=== PATIENT | female | born 1950 | race African-American/Black ===

== ENCOUNTER 2024-09-04 17:41 | Observation (INO) ==
--- NOTE | 2024-09-04 18:06 | EKG ---
Test Reason : chest pain Blood Pressure : */* mmHG Vent. Rate : 80 BPM Atrial Rate : 80 BPM P-R Int : 120 ms QRS Dur : 82 ms QT Int : 378 ms P-R-T Axes : 51 34 77 degrees QTc Int : 435 ms Normal sinus rhythm Nonspecific ST and T wave abnormality Abnormal ECG When compared with ECG of 29-APR-2024 16:25, Nonspecific T wave abnormality has replaced inverted T waves in Inferior leads Confirmed by Mele Mann MD ([id number]) on 09/06/2024 9:44:04 AM Referred By: Confirmed By: Mele Mann MD
[2024-09-04 18:08] VITALS: BMI 23.6
[2024-09-04 18:41] LABS: BASOPHILS # (AUTO) 0.1 X10^3/uL (0.0-0.1); BASOPHILS % (AUTO) 0.8 % (0.2-1.0); EOSINOPHILS % (AUTO) 0.4 % (0.9-2.9); HEMATOCRIT 37.5 % (36.0-47.0); HEMOGLOBIN 12.7 g/dL (12.0-16.0); LYMPHOCYTES % (AUTO) 21.7 % (21.0-51.0); MEAN CORPUSCULAR HEMOGLOBIN 29.2 pg (27.0-34.0); MEAN CORPUSCULAR HGB CONC 33.9 g/dL (33.0-35.0); MEAN CORPUSCULAR VOLUME 86.1 fL (80.0-100.0); MEAN PLATELET VOLUME 9.3 fL (7.4-11.0); MONOCYTES # (AUTO) 0.6 x10^3/uL (0.3-0.8); MONOCYTES % (AUTO) 6.6 % (0.0-13.0); NEUTROPHILS # (AUTO) 6.6 x10^3/uL (2.2-4.8); NEUTROPHILS % (AUTO) 70.5 % (42.0-75.0); PLATELET COUNT 289 X10^3/uL (150.0-450.0); RED BLOOD COUNT 4.36 X10^6/uL (3.5-5.4); RED CELL DISTRIBUTION WIDTH 14.1 % (11.6-16.5); WHITE BLOOD COUNT 9.4 X10^3/uL (3.6-10.0)
[2024-09-04 18:47] LABS: INR 1.21 (0.8-1.3)
[2024-09-04 18:54] LABS: ALANINE AMINOTRANSFERASE 11 Units/L (12-78); ALBUMIN 3.8 g/dL (3.4-5.0); ALKALINE PHOSPHATASE 82 Units/L (46-116); ASPARTATE AMINO TRANSFERASE 12 Units/L (15-37); BLOOD UREA NITROGEN 31 mg/dL (7-18); CALCIUM 9.2 mg/dL (8.5-10.1); CARBON DIOXIDE 21.7 mmol/L (21-32); CHLORIDE 103 mmol/L (98-107); CREATINE KINASE 61 Units/L (26-192); CREATININE 3.27 mg/dL (0.55-1.02); GLUCOSE 103 mg/dL (65-99); POTASSIUM 3.9 mmol/L (3.5-5.1); SODIUM 137 mmol/L (136-145); TOTAL PROTEIN 7.4 g/dL (6.4-8.2); eGFR NON BLACK RACES 15 (>60)
--- NOTE | 2024-09-04 19:43 | DR.CP ---
HPI <Chanceyogesh Neri - Last Filed: 09/04/24 19:45> Time Seen Time Seen by Provider: 09/04/24 19:42 PCP Primary Care Physician: NIECY Complaint Chief Complaint:: Patient c/o of left sided chest pain radiating to the left side of her back/shoulder/leg/arm with sob x2 days. patient states she took x2 nitro yesterday with no relief and x1 nitro today with no relief. COVID-19 Coronavirus risk:travel/contact w/high risk person: No Has patient experienced Coronavirus symptoms: No Source History Provided: Patient Mode of Arrival Mode of Arrival: Wheelchair Timing Onset of Chief Complaint: 09/02/24 Location Chest Pain Radiation Location: Left Jaw, Left Arm and Left Shoulder Associated Signs and Symptoms Associated Signs and Symptoms: Shortness of Breath PMH <Chanceyogesh Neri - Last Filed: 09/04/24 19:45> PMH Past Medical History: Yes Past Medical History: Coronary Artery Disease, Dyslipidemia, Hypertension and [place] Past Surgical History: Yes Surgical History: Angioplasty/Stents, CABG/Valve Surgery, Hysterectomy and T onsillectomy Past Surgical History Comment: stents in right neck Family History History of Family Medical Conditions: Yes Family Medical History: Diabetes Mellitus, Cancer, Heart Failure and Hypertension Social History Does patient currently use any type of tobacco product: No Have you used tobacco products in the last 12 months: No Type of Tobacco Use: None Does any household member use tobacco: No Alcohol Use: None Do you use any recreational Drugs:: No Lives With: Alone Lives Where: Home Travel Risk Coronavirus risk:travel/contact w/high risk person: No Has patient experienced Coronavirus symptoms: No Infectious screening In the last 2 months have you had wt loss of >10#?: NO Have you had fever, night sweats or hemotysis?: No Have you traveled outside the country in the last 6 months?: No Isolation: Standard PE <Romario Neri - Last Filed: 09/04/24 19:45> Vitals Vitals: Vital Signs Temperature 98.0 F Pulse Rate 83 Pulse Rate 81 Respiratory Rate 18 Respiratory Rate 19 Blood Pressure 116/61 Blood Pressure 116/61 O2 Sat by Pulse Oximetry 100 O2 Sat by Pulse Oximetry 100 <Rory Gutierrez - Last Filed: 09/04/24 21:37> Vitals Vitals: Vital Signs Temperature 98.0 F Pulse Rate 83 Pulse Rate 81 Respiratory Rate 18 Respiratory Rate 19 Blood Pressure 116/61 Blood Pressure 116/61 O2 Sat by Pulse Oximetry 100 O2 Sat by Pulse Oximetry 100 ROR <Romario Neri - Last Filed: 09/04/24 19:45> Labs Reviewed 09/04/24 18:32 09/04/24 18:32 Laboratory: WBC 9.4 X10^3/uL (3.6-10.0) 09/04/24 18:32 RBC 4.36 X10^6/uL (3.5-5.4) 09/04/24 18:32 Hgb 12.7 g/dL (12.0-16.0) 09/04/24 18:32 Hct 37.5 % (36.0-47.0) 09/04/24 18:32 MCV 86.1 fL (80.0-100.0) 09/04/24 18:32 MCH 29.2 pg (27.0-34.0) 09/04/24 18:32 MCHC 33.9 g/dL (33.0-35.0) 09/04/24 18:32 RDW 14.1 % (11.6-16.5) 09/04/24 18:32 Plt Count 289 X10^3/uL (150.0-450.0) 09/04/24 18:32 MPV 9.3 fL (7.4-11.0) 09/04/24 18:32 Neut % (Auto) 70.5 % (42.0-75.0) 09/04/24 18:32 Lymph % (Auto) 21.7 % (21.0-51.0) 09/04/24 18:32 [place] % (Auto) 6.6 % (0.0-13.0) 09/04/24 18:32 Eos % (Auto) 0.4 % (0.9-2.9) L 09/04/24 18:32 Baso % (Auto) 0.8 % (0.2-1.0) 09/04/24 18:32 Neut # (Auto) 6.6 x10^3/uL (2.2-4.8) H 09/04/24 18:32 Lymph # (Auto) 2.0 X10^3/uL (1.3-2.9) 09/04/24 18:32 [place] # (Auto) 0.6 x10^3/uL (0.3-0.8) 09/04/24 18:32 Eos # (Auto) 0.0 x10^3/uL (0.0-0.2) 09/04/24 18:32 Baso # (Auto) 0.1 X10^3/uL (0.0-0.1) 09/04/24 18:32 Absolute Nucleated RBC 0.1 /100WBC 09/04/24 18:32 PT 15.1 SECONDS (11.8-14.3) 09/04/24 18:32 INR Target Range - 09/04/24 18:32 INR 1.21 (0.8-1.3) 09/04/24 18:32 APTT 26.8 SECONDS (22.9-36.5) 09/04/24 18:32 PTT Comment - 09/04/24 18:32 Sodium 137 mmol/L (136-145) 09/04/24 18:32 Corrected Sodium TNP 09/04/24 18:32 Potassium 3.9 mmol/L (3.5-5.1) 09/04/24 18:32 Chloride 103 mmol/L (98-107) 09/04/24 18:32 Carbon Dioxide 21.7 mmol/L (21-32) 09/04/24 18:32 BUN 31 mg/dL (7-18) H 09/04/24 18:32 Creatinine 3.27 mg/dL (0.55-1.02) H 09/04/24 18:32 Est GFR (MDRD) Af Amer 18 (>60) L 09/04/24 18:32 Est GFR (MDRD) Non-Af 15 (>60) L 09/04/24 18:32 Glucose 103 mg/dL (65-99) H 09/04/24 18:32 Calcium 9.2 mg/dL (8.5-10.1) 09/04/24 18:32 Corrected Calcium TNP 09/04/24 18:32 Total Bilirubin 0.30 mg/dL (0.2-1.0) 09/04/24 18:32 AST 12 Units/L (15-37) L 09/04/24 18:32 ALT 11 Units/L (12-78) L 09/04/24 18:32 Alkaline Phosphatase 82 Units/L (46-116) 09/04/24 18:32 Creatine Kinase 61 Units/L (26-192) 09/04/24 18:32 Troponin I High Sens 25.1 ng/L (4.0-60.0) 09/04/24 20:20 Total Protein 7.4 g/dL (6.4-8.2) 09/04/24 18:32 Albumin 3.8 g/dL (3.4-5.0) 09/04/24 18:32 Globulin 3.6 g/dL (2.5-4.5) 09/04/24 18:32 Albumin/Globulin Ratio 1.1 Ratio (1.1-2.1) 09/04/24 18:32 SARS-CoV-2 (PCR) Negative (NEGATIVE) 09/04/24 18:00 Influenza Type A (PCR) Negative (NEGATIVE) 09/04/24 18:00 Influenza Type B (PCR) Negative (NEGATIVE) 09/04/24 18:00 RSV (PCR) Negative (NEGATIVE) 09/04/24 18:00 <Rory Gutierrez - Last Filed: 09/04/24 21:37> Labs Reviewed Laboratory: WBC 9.4 X10^3/uL (3.6-10.0) 09/04/24 18:32 RBC 4.36 X10^6/uL (3.5-5.4) 09/04/24 18:32 Hgb 12.7 g/dL (12.0-16.0) 09/04/24 18:32 Hct 37.5 % (36.0-47.0) 09/04/24 18:32 MCV 86.1 fL (80.0-100.0) 09/04/24 18:32 MCH 29.2 pg (27.0-34.0) 09/04/24 18:32 MCHC 33.9 g/dL (33.0-35.0) 09/04/24 18:32 RDW 14.1 % (11.6-16.5) 09/04/24 18:32 Plt Count 289 X10^3/uL (150.0-450.0) 09/04/24 18:32 MPV 9.3 fL (7.4-11.0) 09/04/24 18:32 Neut % (Auto) 70.5 % (42.0-75.0) 09/04/24 18:32 Lymph % (Auto) 21.7 % (21.0-51.0) 09/04/24 18:32 [place] % (Auto) 6.6 % (0.0-13.0) 09/04/24 18:32 Eos % (Auto) 0.4 % (0.9-2.9) L 09/04/24 18:32 Baso % (Auto) 0.8 % (0.2-1.0) 09/04/24 18:32 Neut # (Auto) 6.6 x10^3/uL (2.2-4.8) H 09/04/24 18:32 Lymph # (Auto) 2.0 X10^3/uL (1.3-2.9) 09/04/24 18:32 [place] # (Auto) 0.6 x10^3/uL (0.3-0.8) 09/04/24 18:32 Eos # (Auto) 0.0 x10^3/uL (0.0-0.2) 09/04/24 18:32 Baso # (Auto) 0.1 X10^3/uL (0.0-0.1) 09/04/24 18:32 Absolute Nucleated RBC 0.1 /100WBC 09/04/24 18:32 PT 15.1 SECONDS (11.8-14.3) 09/04/24 18:32 INR Target Range - 09/04/24 18:32 INR 1.21 (0.8-1.3) 09/04/24 18:32 APTT 26.8 SECONDS (22.9-36.5) 09/04/24 18:32 PTT Comment - 09/04/24 18:32 Sodium 137 mmol/L (136-145) 09/04/24 18:32 Corrected Sodium TNP 09/04/24 18:32 Potassium 3.9 mmol/L (3.5-5.1) 09/04/24 18:32 Chloride 103 mmol/L (98-107) 09/04/24 18:32 Carbon Dioxide 21.7 mmol/L (21-32) 09/04/24 18:32 BUN 31 mg/dL (7-18) H 09/04/24 18:32 Creatinine 3.27 mg/dL (0.55-1.02) H 09/04/24 18:32 Est GFR (MDRD) Af Amer 18 (>60) L 09/04/24 18:32 Est GFR (MDRD) Non-Af 15 (>60) L 09/04/24 18:32 Glucose 103 mg/dL (65-99) H 09/04/24 18:32 Calcium 9.2 mg/dL (8.5-10.1) 09/04/24 18:32 Corrected Calcium TNP 09/04/24 18:32 Total Bilirubin 0.30 mg/dL (0.2-1.0) 09/04/24 18:32 AST 12 Units/L (15-37) L 09/04/24 18:32 ALT 11 Units/L (12-78) L 09/04/24 18:32 Alkaline Phosphatase 82 Units/L (46-116) 09/04/24 18:32 Creatine Kinase 61 Units/L (26-192) 09/04/24 18:32 Troponin I High Sens 25.1 ng/L (4.0-60.0) 09/04/24 20:20 Total Protein 7.4 g/dL (6.4-8.2) 09/04/24 18:32 Albumin 3.8 g/dL (3.4-5.0) 09/04/24 18:32 Globulin 3.6 g/dL (2.5-4.5) 09/04/24 18:32 Albumin/Globulin Ratio 1.1 Ratio (1.1-2.1) 09/04/24 18:32 SARS-CoV-2 (PCR) Negative (NEGATIVE) 09/04/24 18:00 Influenza Type A (PCR) Negative (NEGATIVE) 09/04/24 18:00 Influenza Type B (PCR) Negative (NEGATIVE) 09/04/24 18:00 RSV (PCR) Negative (NEGATIVE) 09/04/24 18:00 Opioid <Romario Neri - Last Filed: 09/04/24 19:45> Opioid Risk Tool Age (Carlos box if 16-45): No History of Preadolescent Sexual Abuse: No Total: 0 Total Score Risk Category: Low Risk Copyright: [employer] MANNING predicting aberrant behaviors <Rory Gutierrez - Last Filed: 09/04/24 21:37> Opioid Risk Tool Total: 0 Total Score Risk Category: Low Risk Discharge Plan Diagnosis Discharge Problem: Chest pain, Acute renal insufficiency Discharge Plan Patient Disposition: 09 ADMITTED INPATIENT Condition: Stable Prescriptions: No Action nitroglycerin 0.4 mg tablet, sublingual sublingual escitalopram oxalate 10 mg tablet 10 mg PO QDAY Linzess 290 mcg capsule 290 mcg PO QAM Ozempic 1 mg/dose (4 mg/3 mL) pen injector 1 mg SUBCUT QWEEK clopidogrel 75 mg tablet 75 mg PO QDAY amlodipine 5 mg tablet 5 mg PO QDAY tramadol 50 mg tablet 100 mg PO TID pravastatin 80 mg tablet 80 mg PO QDAY estradiol 1 mg tablet 1 mg PO QDAY diclofenac sodium 75 mg tablet,delayed release (DR/EC) 75 mg PO BID testosterone 1 % (25 mg/2.5gram) gel in packet 0.5 packet transdermal QAM metoprolol tartrate 25 mg tablet 25 mg PO BID losartan 50 mg Tablet 50 mg PO QDAY albuterol sulfate 90 mcg/actuation HFA aerosol inhaler 1 puff INHALATION Q4H PRN Health Concerns: Post Hospitalization: new medications and changes needed to prevent readmission or further decline. Pt educated and given instructions on all concerns. Plan of Treatment: Continue with present treatment and follow up plan. Pt is to keep follow up appointment as instructed and take medications as ordered. Orders to Discharge Patient Discharge Orders: Transfer (Routine); Ordered 09/04/24 Ordered By: Rory Gutierrez Follow ups/Referrals Follow ups/Referrals: Marco Kenney [Primary Care Provider] - 3 days
--- NOTE | 2024-09-04 20:30 | EKG ---
Test Reason : CHEST PAIN Blood Pressure : */* mmHG Vent. Rate : 78 BPM Atrial Rate : 78 BPM P-R Int : 122 ms QRS Dur : 78 ms QT Int : 376 ms P-R-T Axes : 31 9 46 degrees QTc Int : 428 ms Normal sinus rhythm Possible Left atrial enlargement Left ventricular hypertrophy ( R in aVL , Nilo product ) Nonspecific ST and T wave abnormality Abnormal ECG When compared with ECG of 04-SEP-2024 18:02, (Unconfirmed) No significant change was found Confirmed by Mele Mann MD ([id number]) on 09/07/2024 9:31:24 AM Referred By: Confirmed By: Mele Mann MD
--- NOTE | 2024-09-04 21:27 | DR.GENAD ---
HPI Time Seen Time Seen by Provider: 09/04/24 19:42 PCP Primary Care Physician: NIECY Complaint/Symptoms Chief Complaint:: Patient c/o of left sided chest pain radiating to the left side of her back/shoulder/leg/arm with sob x2 days. patient states she took x2 nitro yesterday with no relief and x1 nitro today with no relief. COVID-19 Coronavirus risk:travel/contact w/high risk person: No Has patient experienced Coronavirus symptoms: No Nurses notes reviewed Nurses Notes Review: Yes Source History Provided: Patient Mode of Arrival Mode of Arrival: Wheelchair Timing Onset of Chief Complaint: 09/02/24 PMH PMH Past Medical History: Yes Past Medical History: Coronary Artery Disease, Dyslipidemia, Hypertension and [place] Past Surgical History: Yes Surgical History: Angioplasty/Stents, CABG/Valve Surgery, Hysterectomy and Tonsillectomy Past Surgical History Comment: stents in right neck Family History History of Family Medical Conditions: Yes Family Medical History: Diabetes Mellitus, Cancer, Heart Failure and Hypertension Social History Does patient currently use any type of tobacco product: No Have you used tobacco products in the last 12 months: No Type of Tobacco Use: None Does any household member use tobacco: No Alcohol Use: None Do you use any recreational Drugs:: No Lives With: Alone Lives Where: Home Travel Risk Coronavirus risk:travel/contact w/high risk person: No Has patient experienced Coronavirus symptoms: No Infectious screening In the last 2 months have you had wt loss of >10#?: NO Have you had fever, night sweats or hemotysis?: No Have you traveled outside the country in the last 6 months?: No Isolation: Standard ROS Review of Systems Constitutional: No Symptoms Reported Eyes: No Symptoms Reported ENTM: No Symptoms Reported Respiratoy: No Symptoms Reported Cardiovascular: Other (cp for a few days, h/o cabg) Gastrointestinal/Abdominal: No Symptoms Reported Genitourinary: No Symptoms Reported Neurological: No Symptoms Reported Musculoskeletal: No Symptoms Reported Integumentary: No Symptoms Reported Hematologic/Lymphatic: No Symptoms Reported Endocrine: No Symptoms Reported Psychiatric: No Symptoms Reported All Other Systems: Reviewed and Negative PE Vital Signs Vitals: Vital Signs Temperature 98.0 F Pulse Rate 83 Pulse Rate 81 Respiratory Rate 18 Respiratory Rate 19 Blood Pressure 116/61 Blood Pressure 116/61 O2 Sat by Pulse Oximetry 100 O2 Sat by Pulse Oximetry 100 General General Appearance: Alert ENT Mouth Exam: Normal Inspection Neck Neck Exam: Normal Inspection Respiratory Respiratory Exam: Normal Lung Sounds Bilat Cardiovascular Cardiovascular Exam: Other (normal) Abdominal Exam Abdominal Exam: Normal Inspection and Normal Bowel Sounds; negative Tenderness Extremities Extremities Exam: Normal Inspection Neurologic Neurological Exam: Alert, Oriented X3 and Other (normal) Skin Skin Exam: Other MDM Differential Diagnosis Differential Diagnosis: mi, renal failure COURSE Reevaluation 1st: Improved Consultation Called: 21:24 Call Returned: 21:24 Consultation Comments: accepts, told about cp,. nl troponin x 2, now decreased renal function ROR Labs Reviewed 09/04/24 18:32 09/04/24 18:32 Laboratory: WBC 9.4 X10^3/uL (3.6-10.0) 09/04/24 18:32 RBC 4.36 X10^6/uL (3.5-5.4) 09/04/24 18:32 Hgb 12.7 g/dL (12.0-16.0) 09/04/24 18:32 Hct 37.5 % (36.0-47.0) 09/04/24 18:32 MCV 86.1 fL (80.0-100.0) 09/04/24 18:32 MCH 29.2 pg (27.0-34.0) 09/04/24 18:32 MCHC 33.9 g/dL (33.0-35.0) 09/04/24 18:32 RDW 14.1 % (11.6-16.5) 09/04/24 18:32 Plt Count 289 X10^3/uL (150.0-450.0) 09/04/24 18:32 MPV 9.3 fL (7.4-11.0) 09/04/24 18:32 Neut % (Auto) 70.5 % (42.0-75.0) 09/04/24 18:32 Lymph % (Auto) 21.7 % (21.0-51.0) 09/04/24 18:32 [place] % (Auto) 6.6 % (0.0-13.0) 09/04/24 18:32 Eos % (Auto) 0.4 % (0.9-2.9) L 09/04/24 18:32 Baso % (Auto) 0.8 % (0.2-1.0) 09/04/24 18:32 Neut # (Auto) 6.6 x10^3/uL (2.2-4.8) H 09/04/24 18:32 Lymph # (Auto) 2.0 X10^3/uL (1.3-2.9) 09/04/24 18:32 [place] # (Auto) 0.6 x10^3/uL (0.3-0.8) 09/04/24 18:32 Eos # (Auto) 0.0 x10^3/uL (0.0-0.2) 09/04/24 18:32 Baso # (Auto) 0.1 X10^3/uL (0.0-0.1) 09/04/24 18:32 Absolute Nucleated RBC 0.1 /100WBC 09/04/24 18:32 PT 15.1 SECONDS (11.8-14.3) 09/04/24 18:32 INR Target Range - 09/04/24 18:32 INR 1.21 (0.8-1.3) 09/04/24 18:32 APTT 26.8 SECONDS (22.9-36.5) 09/04/24 18:32 PTT Comment - 09/04/24 18:32 Sodium 137 mmol/L (136-145) 09/04/24 18:32 Corrected Sodium TNP 09/04/24 18:32 Potassium 3.9 mmol/L (3.5-5.1) 09/04/24 18:32 Chloride 103 mmol/L (98-107) 09/04/24 18:32 Carbon Dioxide 21.7 mmol/L (21-32) 09/04/24 18:32 BUN 31 mg/dL (7-18) H 09/04/24 18:32 Creatinine 3.27 mg/dL (0.55-1.02) H 09/04/24 18:32 Est GFR (MDRD) Af Amer 18 (>60) L 09/04/24 18:32 Est GFR (MDRD) Non-Af 15 (>60) L 09/04/24 18:32 Glucose 103 mg/dL (65-99) H 09/04/24 18:32 Calcium 9.2 mg/dL (8.5-10.1) 09/04/24 18:32 Corrected Calcium TNP 09/04/24 18:32 Total Bilirubin 0.30 mg/dL (0.2-1.0) 09/04/24 18:32 AST 12 Units/L (15-37) L 09/04/24 18:32 ALT 11 Units/L (12-78) L 09/04/24 18:32 Alkaline Phosphatase 82 Units/L (46-116) 09/04/24 18:32 Creatine Kinase 61 Units/L (26-192) 09/04/24 18:32 Troponin I High Sens 25.1 ng/L (4.0-60.0) 09/04/24 20:20 Total Protein 7.4 g/dL (6.4-8.2) 09/04/24 18:32 Albumin 3.8 g/dL (3.4-5.0) 09/04/24 18:32 Globulin 3.6 g/dL (2.5-4.5) 09/04/24 18:32 Albumin/Globulin Ratio 1.1 Ratio (1.1-2.1) 09/04/24 18:32 SARS-CoV-2 (PCR) Negative (NEGATIVE) 09/04/24 18:00 Influenza Type A (PCR) Negative (NEGATIVE) 09/04/24 18:00 Influenza Type B (PCR) Negative (NEGATIVE) 09/04/24 18:00 RSV (PCR) Negative (NEGATIVE) 09/04/24 18:00 EKG Compared to prior EKG Dated: 09/04/24 ST: Ischemia and Nonsp Opioid Opioid Risk Tool Age (Carlos box if 16-45): No History of Preadolescent Sexual Abuse: No Total: 0 Total Score Risk Category: Low Risk Copyright: [employer] MANNING predicting aberrant behaviors Discharge Plan Diagnosis Discharge Problem: Chest pain, Acute renal insufficiency Discharge Plan Patient Disposition: 09 ADMITTED INPATIENT Condition: Stable Prescriptions: No Action nitroglycerin 0.4 mg tablet, sublingual sublingual escitalopram oxalate 10 mg tablet 10 mg PO QDAY Linzess 290 mcg capsule 290 mcg PO QAM Ozempic 1 mg/dose (4 mg/3 mL) pen injector 1 mg SUBCUT QWEEK clopidogrel 75 mg tablet 75 mg PO QDAY amlodipine 5 mg tablet 5 mg PO QDAY tramadol 50 mg tablet 100 mg PO TID pravastatin 80 mg tablet 80 mg PO QDAY estradiol 1 mg tablet 1 mg PO QDAY diclofenac sodium 75 mg tablet,delayed release (DR/EC) 75 mg PO BID testosterone 1 % (25 mg/2.5gram) gel in packet 0.5 packet transdermal QAM metoprolol tartrate 25 mg tablet 25 mg PO BID losartan 50 mg Tablet 50 mg PO QDAY albuterol sulfate 90 mcg/actuation HFA aerosol inhaler 1 puff INHALATION Q4H PRN Health Concerns: Post Hospitalization: new medications and changes needed to prevent readmission or further decline. Pt educated and given instructions on all concerns. Plan of Treatment: Continue with present treatment and follow up plan. Pt is to keep follow up appointment as instructed and take medications as ordered. Follow ups/Referrals Follow ups/Referrals: Marco Kenney [Primary Care Provider] - 3 days
--- NOTE | 2024-09-04 23:21 | RAD ---
EXAM:CHEST, 1 VIEWHISTORY:CP,LIGHT HEADED;COMPARISON:No relevant prior studies were available for comparison at the time of interpretation.TECHNIQUE:CHEST, 1 VIEWFINDINGS:Chest:Lines and tubes: Cardiac leads overlie the chest.Mediastinum: Median sternotomy wires are present. Cardiac shadow is normal in size.Pulmonary vessels: No pulmonary vascular congestion.Lung garsia: No suspicious airspace opacity.Pleura: No effusion. No pneumothorax.Bones and soft tissues: No acute osseous or soft tissue abnormality. There is a reservoir for a gastric band. The band itself is not seenIMPRESSION:1. No acute cardiopulmonary abnormalityTHIS IS AN ELECTRONICALLY VERIFIED FINAL [id number]/04/2024 11:18 PM - Electronically signed by Nicholas Vallecillo MD
[2024-09-04] MEDS ORDERED: NITROSTAT SL PRN (23:39)
[2024-09-05] MEDS: ASPIRIN PO SCH (00:22)
[2024-09-05] MEDS: NS 1,000 ML IV 1,000 ML IV SCH (00:22)
[2024-09-05 06:15] LABS: BASOPHILS % (AUTO) 0.5 % (0.2-1.0); EOSINOPHILS # (AUTO) 0.1 x10^3/uL (0.0-0.2); HEMATOCRIT 37.7 % (36.0-47.0); HEMOGLOBIN 12.6 g/dL (12.0-16.0); LYMPHOCYTES % (AUTO) 42.6 % (21.0-51.0); MEAN CORPUSCULAR HEMOGLOBIN 29.3 pg (27.0-34.0); MEAN CORPUSCULAR HGB CONC 33.5 g/dL (33.0-35.0); MEAN CORPUSCULAR VOLUME 87.5 fL (80.0-100.0); MEAN PLATELET VOLUME 9.7 fL (7.4-11.0); MONOCYTES # (AUTO) 0.7 x10^3/uL (0.3-0.8); MONOCYTES % (AUTO) 7.4 % (0.0-13.0); NEUTROPHILS # (AUTO) 4.6 x10^3/uL (2.2-4.8); NEUTROPHILS % (AUTO) 48.5 % (42.0-75.0); PLATELET COUNT 260 X10^3/uL (150.0-450.0); RED BLOOD COUNT 4.31 X10^6/uL (3.5-5.4); WHITE BLOOD COUNT 9.5 X10^3/uL (3.6-10.0)
[2024-09-05 06:38] LABS: ALANINE AMINOTRANSFERASE 11 Units/L (12-78); ALBUMIN 3.7 g/dL (3.4-5.0); ALKALINE PHOSPHATASE 83 Units/L (46-116); ASPARTATE AMINO TRANSFERASE 13 Units/L (15-37); BLOOD UREA NITROGEN 27 mg/dL (7-18); CALCIUM 9.4 mg/dL (8.5-10.1); CARBON DIOXIDE 22.1 mmol/L (21-32); CHLORIDE 106 mmol/L (98-107); CHOLESTEROL 211 mg/dL (0-200); CREATININE 2.95 mg/dL (0.55-1.02); GLUCOSE 85 mg/dL (65-99); HDL CHOLESTEROL 42 mg/dL (40-60); MAGNESIUM 2.3 mg/dL (2.0-2.9); POTASSIUM 3.7 mmol/L (3.5-5.1); SODIUM 140 mmol/L (136-145); TOTAL PROTEIN 7.2 g/dL (6.4-8.2); TRIGLYCERIDES 132 mg/dL (0-150); eGFR NON BLACK RACES 17 (>60)
[2024-09-05] MEDS: MILK OF MAGNESIA PO SCH (09:01)
--- NOTE | 2024-09-05 09:46 | DR.H&P ---
H&P History & Physical for Day of: H&P Date: 09/05/24 Chief Complaint Chief Complaint: shortness of breath chest pain History of Present Illness History of Present Illness: Patient is a 73-year-old female with a past medical history of hypertension, CABG, CAD, hyperlipidemia, presenting with with past few days shortness of breath on exertion and chest pain. She reports the pain is whenever she ambulates or does physical activity. She states that she has a history of a CABG done in 2019 at [place]. She also has CKD and is followed by nephrology Dr. Cedeno. She is followed by cardiologyDr. Campbell in [place]. Labs/imaging: WBC 9.5, hemoglobin 12.6, platelets 260, sodium 140, potassium 3.7, creatinine 3.272.95, glucose 85. Pt admitted for chest pain rule out and acute kidney injury. Will order echo for further evaluation and BNP, CXR negative, COVID/Flu/RSV negative. Troponin negative x 3. Restart home med ications. Continue to closely monitor and follow up labs. Past Medical History Past Medical History: Coronary Artery Disease, Dyslipidemia, Hypertension and DC Past Surgical History Surgical History: Angioplasty/Stents, CABG/Valve Surgery, Hysterectomy and Tonsillectomy Family History Family Medical History: DC, Coronary Artery Disease and Heart Failure Social History Does patient currently use any type of tobacco product: No Have you used tobacco products in the last 12 months: No Type of Tobacco Use: None Does any household member use tobacco: No Alcohol Use: None Drug Use: None Medications Home Medications: Home Medications Medication Instructions Recorded Confirmed Type amlodipine 5 mg tablet 5 mg PO QDAY 04/12/24 09/04/24 History clopidogrel 75 mg tablet 75 mg PO QDAY 04/12/24 09/04/24 History diclofenac sodium 75 mg 75 mg PO BID 04/12/24 09/04/24 History tablet,delayed release estradiol 1 mg tablet 1 mg PO QDAY 04/12/24 09/04/24 History metoprolol tartrate 25 mg tablet 25 mg PO BID 04/12/24 09/04/24 History pravastatin 80 mg tablet 80 mg PO QDAY 04/12/24 09/04/24 History testosterone 1 % (25 mg/2.5 gram) 0.5 packet transdermal QAM 04/12/24 09/04/24 History transdermal gel packet tramadol 50 mg tablet 100 mg PO TID 04/12/24 09/04/24 History albuterol sulfate 90 mcg/actuation 1 puff inhalation Q4H PRN 04/29/24 09/04/24 History aerosol inhaler losartan 50 mg tablet 50 mg PO QDAY 04/29/24 09/04/24 History escitalopram oxalate 10 mg tablet 10 mg PO QDAY 09/04/24 09/04/24 History linaclotide 290 mcg capsule 290 mcg PO QAM 09/04/24 09/04/24 History (Linzess) nitroglycerin 0.4 mg sublingual 0.4 mg sublingual PRN PRN 09/04/24 09/04/24 History tablet (Nitrostat) semaglutide 1 mg/dose (4 mg/3 mL) 1 mg subcut QWEEK 09/04/24 09/04/24 History subcutaneous pen injector (Ozempic) Allergies Allergies Allergy/AdvReac Type Severity Reaction Status Date / Time Sulfa (Sulfonamide Allergy Verified 04/12/24 11:45 Antibiotics) [SULFA] Labs 09/05/24 05:23 09/05/24 05:23 Labs: Laboratory WBC 9.5 X10^3/uL (3.6-10.0) 09/05/24 05:23 RBC 4.31 X10^6/uL (3.5-5.4) 09/05/24 05:23 Hgb 12.6 g/dL (12.0-16.0) 09/05/24 05:23 Hct 37.7 % (36.0-47.0) 09/05/24 05:23 MCV 87.5 fL (80.0-100.0) 09/05/24 05:23 MCH 29.3 pg (27.0-34.0) 09/05/24 05:23 MCHC 33.5 g/dL (33.0-35.0) 09/05/24 05:23 RDW 14.0 % (11.6-16.5) 09/05/24 05:23 Plt Count 260 X10^3/uL (150.0-450.0) 09/05/24 05:23 MPV 9.7 fL (7.4-11.0) 09/05/24 05:23 Neut % (Auto) 48.5 % (42.0-75.0) 09/05/24 05:23 Lymph % (Auto) 42.6 % (21.0-51.0) 09/05/24 05:23 [place] % (Auto) 7.4 % (0.0-13.0) 09/05/24 05:23 Eos % (Auto) 1.0 % (0.9-2.9) 09/05/24 05:23 Baso % (Auto) 0.5 % (0.2-1.0) 09/05/24 05:23 Neut # (Auto) 4.6 x10^3/uL (2.2-4.8) 09/05/24 05:23 Lymph # (Auto) 4.0 X10^3/uL (1.3-2.9) H 09/05/24 05:23 [place] # (Auto) 0.7 x10^3/uL (0.3-0.8) 09/05/24 05:23 Eos # (Auto) 0.1 x10^3/uL (0.0-0.2) 09/05/24 05:23 Baso # (Auto) 0.0 X10^3/uL (0.0-0.1) 09/05/24 05:23 Absolute Nucleated RBC 0.0 /100WBC 09/05/24 05:23 PT 14.9 SECONDS (11.8-14.3) 09/05/24 05:23 INR Target Range - 09/05/24 05:23 INR 1.20 (0.8-1.3) 09/05/24 05:23 APTT 28.0 SECONDS (22.9-36.5) 09/05/24 05:23 PTT Comment - 09/05/24 05:23 Sodium 140 mmol/L (136-145) 09/05/24 05:23 Corrected Sodium TNP 09/05/24 05:23 Potassium 3.7 mmol/L (3.5-5.1) 09/05/24 05:23 Chloride 106 mmol/L (98-107) 09/05/24 05:23 Carbon Dioxide 22.1 mmol/L (21-32) 09/05/24 05:23 BUN 27 mg/dL (7-18) H 09/05/24 05:23 Creatinine 2.95 mg/dL (0.55-1.02) H 09/05/24 05:23 Est GFR (MDRD) Af Amer 20 (>60) L 09/05/24 05:23 Est GFR (MDRD) Non-Af 17 (>60) L 09/05/24 05:23 Glucose 85 mg/dL (65-99) 09/05/24 05:23 Calcium 9.4 mg/dL (8.5-10.1) 09/05/24 05:23 Corrected Calcium TNP 09/05/24 05:23 Magnesium 2.3 mg/dL (2.0-2.9) 09/05/24 05:23 Total Bilirubin 0.30 mg/dL (0.2-1.0) 09/05/24 05:23 AST 13 Units/L (15-37) L 09/05/24 05:23 ALT 11 Units/L (12-78) L 09/05/24 05:23 Alkaline Phosphatase 83 Units/L (46-116) 09/05/24 05:23 Creatine Kinase 61 Units/L (26-192) 09/04/24 18:32 Troponin I High Sens 26.5 ng/L (4.0-60.0) 09/05/24 05:23 Total Protein 7.2 g/dL (6.4-8.2) 09/05/24 05:23 Albumin 3.7 g/dL (3.4-5.0) 09/05/24 05:23 Globulin 3.5 g/dL (2.5-4.5) 09/05/24 05:23 Albumin/Globulin Ratio 1.1 Ratio (1.1-2.1) 09/05/24 05:23 Triglycerides 132 mg/dL (0-150) 09/05/24 05:23 Cholesterol 211 mg/dL (0-200) H 09/05/24 05:23 LDL Cholesterol, Calc 143 mg/dL (0-100) H 09/05/24 05:23 HDL Cholesterol 42 mg/dL (40-60) 09/05/24 05:23 Cholesterol/HDL Ratio 5.0 (0.0-5.0) 09/05/24 05:23 SARS-CoV-2 (PCR) Negative (NEGATIVE) 09/04/24 18:00 Influenza Type A (PCR) Negative (NEGATIVE) 09/04/24 18:00 Influenza Type B (PCR) Negative (NEGATIVE) 09/04/24 18:00 RSV (PCR) Negative (NEGATIVE) 09/04/24 18:00 Review of Systems Constitutional: No Symptoms Reported Eyes: No Symptoms Reported ENT: No Symptoms Reported Respiratory: Shortness of Breath Cardiovascular: Chest Pain Gastrointestinal: No Symptoms Reported Genitourinary: No Symptoms Reported Musculoskeletal: No Symptoms Reported Skin: No Symptoms Reported Neurological: No Symptoms Reported Physical Exam Vital Signs: Vital Signs Temperature 97.7 F Pulse Rate [Left Radial] 81 Respiratory Rate 19 Blood Pressure [Left Arm] 116/60 O2 Sat by Pulse Oximetry 100 Oriented: Normal Eyes: Normal Ear: Normal Nose: Normal Throat: Normal Respiratory: Clear Throughout Cardiovascular: Normal : Normal Auscultation: Bowel Sounds: Normal Palpation: Normal Tenderness: Normal Skin: Normal Musculoskeletal: Normal Psychiatric: Normal Mood Description: Calm and Appropriate Affect: Normal Speech Pattern: Clear and Appropriate Assessment/Plan (1) Chest pain: Qualifiers: Chest pain type: unspecified Qualified Code(s): R07.9 - Chest pain, unspecified Status: Acute Plan: monitor order echo and bnp (2) Acute renal insufficiency: Status: Acute Plan: IVF, monitor renal function (3) Acute hypokalemia: Status: Acute Plan: replete per protocol Review H&P Reviewed: Yes Patient was examined?: Yes
[2024-09-05] MEDS: PLAVIX PO SCH (10:07)
[2024-09-05] MEDS: LEXAPRO PO SCH (10:07)
[2024-09-05] MEDS: LEXAPRO ONE (10:09)
[2024-09-05] MEDS: ULTRAM PO SCH (14:16)
[2024-09-05] MEDS: COLACE CAP 100 MG PO SCH (20:33)
[2024-09-05] MEDS: LOPRESSOR TAB 25 MG PO SCH (20:34)
[2024-09-06 06:08] LABS: ALANINE AMINOTRANSFERASE 10 Units/L (12-78); ALBUMIN 3.1 g/dL (3.4-5.0); ALKALINE PHOSPHATASE 84 Units/L (46-116); ASPARTATE AMINO TRANSFERASE 16 Units/L (15-37); BLOOD UREA NITROGEN 22 mg/dL (7-18); CALCIUM 8.9 mg/dL (8.5-10.1); CARBON DIOXIDE 24.1 mmol/L (21-32); CHLORIDE 110 mmol/L (98-107); COR CA(FOR HYPOALB) 9.6 mg/dL (8.5-10.1); CREATININE 2.91 mg/dL (0.55-1.02); GLUCOSE 89 mg/dL (65-99); POTASSIUM 4.1 mmol/L (3.5-5.1); SODIUM 142 mmol/L (136-145); TOTAL PROTEIN 6.4 g/dL (6.4-8.2); eGFR NON BLACK RACES 17 (>60)
[2024-09-06 06:37] LABS: BASOPHILS # (AUTO) 0.1 X10^3/uL (0.0-0.1); BASOPHILS % (AUTO) 1.2 % (0.2-1.0); EOSINOPHILS # (AUTO) 0.1 x10^3/uL (0.0-0.2); EOSINOPHILS % (AUTO) 1.5 % (0.9-2.9); HEMATOCRIT 35.5 % (36.0-47.0); LYMPHOCYTES # (AUTO) 2.9 X10^3/uL (1.3-2.9); LYMPHOCYTES % (AUTO) 37.8 % (21.0-51.0); MEAN CORPUSCULAR HEMOGLOBIN 29.4 pg (27.0-34.0); MEAN CORPUSCULAR HGB CONC 33.8 g/dL (33.0-35.0); MEAN PLATELET VOLUME 9.4 fL (7.4-11.0); MONOCYTES # (AUTO) 0.6 x10^3/uL (0.3-0.8); MONOCYTES % (AUTO) 7.9 % (0.0-13.0); NEUTROPHILS % (AUTO) 51.6 % (42.0-75.0); PLATELET COUNT 217 X10^3/uL (150.0-450.0); RED BLOOD COUNT 4.08 X10^6/uL (3.5-5.4); RED CELL DISTRIBUTION WIDTH 13.9 % (11.6-16.5); WHITE BLOOD COUNT 7.8 X10^3/uL (3.6-10.0)
[2024-09-06] MEDS: PROVENTIL NEB TX 0.083% 2.5MG/ 3ML NEB PRN (07:44)
[2024-09-06] MEDS ORDERED: LEXAPRO ONE (08:12)
[2024-09-06] MEDS: NORVASC TAB 5 MG PO SCH (08:20)
[2024-09-06] MEDS: PRAVACHOL PO SCH (08:20)
[2024-09-06 08:23] VITALS: RESP 18
[2024-09-06 09:40] VITALS: O2SAT 100
--- NOTE | 2024-09-06 10:33 | VAS ---
EXAMINATION:LOWER EXT VENOUS, UNILATERALHISTORY:LEFT LEG PAIN,CP; ; BSA=1.64BSAType=OCCIDENTAL.COMPARISON:None.TE CHNIQUE:Real-time, grayscale, color flow, Doppler and compression of the venous system was performed.FINDINGS:The left common femoral vein(s), superficial femoral vein(s), popliteal vein(s) demonstrate normal compressibility, augmentation, respiratory variation and color flow.The posterior tibial vein(s) is patent.There is no sonographic evidence for Shea's cyst. .IMPRESSION:There is no sonographic evidence for acute DVT within left lower extremity.THIS IS AN ELECTRONICALLY VERIFIED FINAL REPORT09/06/2024 10:30 AM - Electronically signed by Nacho Alejandra MD
--- NOTE | 2024-09-06 10:37 | PCM.PROG ---
Progress Note Progress Note for Day of Date of Exam: 09/06/24 Subjective Subjective: Patient is a 73-year-old female with a past medical history of hypertension, CABG, CAD, hyperlipidemia, admitted for chest pain rule out and acute kidney injury. This morning she is resting comfortably in bed. No acute events overnight. Labs/imaging: WBC 7.8, hemoglobin 12, platelets 217, sodium 142, potassium 4.1, creatinine 2.91, glucose 89, BNP 54. Will order echo, CT chest w/o contrast. Pt complaining of left lower extremity pain. Will get ultrasound to rule out DVT. Troponin negative x 3. Repeat ekg. Home medications resumed. Continue to closely monitor and follow up labs. Past Medical Family Social History Allergies: Allergies Sulfa (Sulfonamide Antibiotics) [SULFA] Allergy (Verified 04/12/24 11:45) Review of Systems ROS changes noted: see HPI Vital Signs and I&O's Vital Signs: Vital Signs Temperature 97.6 F Temperature 97.5 F Pulse Rate [Left Radial] 75 Pulse Rate [Left Radial] 78 Pulse Rate 77 Respiratory Rate 18 Respiratory Rate 17 Respiratory Rate 16 Respiratory Rate 16 Blood Pressure [Left Arm] 116/56 Blood Pressure [Left Arm] 126/60 O2 Sat by Pulse Oximetry 100 O2 Sat by Pulse Oximetry 95 O2 Sat by Pulse Oximetry 99 Intake and Output: Intake & Output 09/03/24 09/04/24 09/05/24 09/06/24 23:59 23:59 23:59 23:59 Intake Total 3324 / 3324 1680 / 1680 Balance 3324 / 3324 1680 / 1680 Physical Exam Oriented: Normal Eyes: Normal Ear: Normal Nose: Normal Throat: Normal Cardiovascular: Normal : Normal Auscultation: Bowel Sounds: Normal Tenderness: Normal Skin: Normal Musculoskeletal: Normal Psychiatric: Normal Mood Description: Calm and Appropriate Affect: Normal Speech Pattern: Clear and Appropriate Laboratory and Diagnostics 09/06/24 06:18 09/06/24 05:34 Labs: Laboratory WBC 7.8 X10^3/uL (3.6-10.0) 09/06/24 06:18 RBC 4.08 X10^6/uL (3.5-5.4) 09/06/24 06:18 Hgb 12.0 g/dL (12.0-16.0) 09/06/24 06:18 Hct 35.5 % (36.0-47.0) L 09/06/24 06:18 MCV 87.0 fL (80.0-100.0) 09/06/24 06:18 MCH 29.4 pg (27.0-34.0) 09/06/24 06:18 MCHC 33.8 g/dL (33.0-35.0) 09/06/24 06:18 RDW 13.9 % (11.6-16.5) 09/06/24 06:18 Plt Count 217 X10^3/uL (150.0-450.0) 09/06/24 06:18 MPV 9.4 fL (7.4-11.0) 09/06/24 06:18 Neut % (Auto) 51.6 % (42.0-75.0) 09/06/24 06:18 Lymph % (Auto) 37.8 % (21.0-51.0) 09/06/24 06:18 [place] % (Auto) 7.9 % (0.0-13.0) 09/06/24 06:18 Eos % (Auto) 1.5 % (0.9-2.9) 09/06/24 06:18 Baso % (Auto) 1.2 % (0.2-1.0) H 09/06/24 06:18 Neut # (Auto) 4.0 x10^3/uL (2.2-4.8) 09/06/24 06:18 Lymph # (Auto) 2.9 X10^3/uL (1.3-2.9) 09/06/24 06:18 [place] # (Auto) 0.6 x10^3/uL (0.3-0.8) 09/06/24 06:18 Eos # (Auto) 0.1 x10^3/uL (0.0-0.2) 09/06/24 06:18 Baso # (Auto) 0.1 X10^3/uL (0.0-0.1) 09/06/24 06:18 Absolute Nucleated RBC 0.0 /100WBC 09/06/24 06:18 PT 14.9 SECONDS (11.8-14.3) 09/05/24 05:23 INR Target Range - 09/05/24 05:23 INR 1.20 (0.8-1.3) 09/05/24 05:23 APTT 28.0 SECONDS (22.9-36.5) 09/05/24 05:23 PTT Comment - 09/05/24 05:23 Sodium 142 mmol/L (136-145) 09/06/24 05:34 Corrected Sodium TNP 09/06/24 05:34 Potassium 4.1 mmol/L (3.5-5.1) 09/06/24 05:34 Chloride 110 mmol/L (98-107) H 09/06/24 05:34 Carbon Dioxide 24.1 mmol/L (21-32) 09/06/24 05:34 BUN 22 mg/dL (7-18) H 09/06/24 05:34 Creatinine 2.91 mg/dL (0.55-1.02) H 09/06/24 05:34 Est GFR (MDRD) Af Amer 20 (>60) L 09/06/24 05:34 Est GFR (MDRD) Non-Af 17 (>60) L 09/06/24 05:34 Glucose 89 mg/dL (65-99) 09/06/24 05:34 Calcium 8.9 mg/dL (8.5-10.1) 09/06/24 05:34 Corrected Calcium 9.6 mg/dL (8.5-10.1) 09/06/24 05:34 Magnesium 2.3 mg/dL (2.0-2.9) 09/05/24 05:23 Total Bilirubin 0.10 mg/dL (0.2-1.0) L 09/06/24 05:34 AST 16 Units/L (15-37) 09/06/24 05:34 ALT 10 Units/L (12-78) L 09/06/24 05:34 Alkaline Phosphatase 84 Units/L (46-116) 09/06/24 05:34 Creatine Kinase 65 Units/L (26-192) 09/05/24 11:36 Troponin I High Sens 24.1 ng/L (4.0-60.0) 09/05/24 11:36 B-Natriuretic Peptide 54.4 pg/mL (0-79) 09/05/24 05:23 Total Protein 6.4 g/dL (6.4-8.2) 09/06/24 05:34 Albumin 3.1 g/dL (3.4-5.0) L 09/06/24 05:34 Globulin 3.3 g/dL (2.5-4.5) 09/06/24 05:34 Albumin/Globulin Ratio 0.9 Ratio (1.1-2.1) L 09/06/24 05:34 Triglycerides 132 mg/dL (0-150) 09/05/24 05:23 Cholesterol 211 mg/dL (0-200) H 09/05/24 05:23 LDL Cholesterol, Calc 143 mg/dL (0-100) H 09/05/24 05:23 HDL Cholesterol 42 mg/dL (40-60) 09/05/24 05:23 Cholesterol/HDL Ratio 5.0 (0.0-5.0) 09/05/24 05:23 SARS-CoV-2 (PCR) Negative (NEGATIVE) 09/04/24 18:00 Influenza Type A (PCR) Negative (NEGATIVE) 09/04/24 18:00 Influenza Type B (PCR) Negative (NEGATIVE) 09/04/24 18:00 RSV (PCR) Negative (NEGATIVE) 09/04/24 18:00 Plan (1) Chest pain: Status: Acute Qualifiers: Chest pain type: unspecified Qualified Code(s): R07.9 - Chest pain, unspecified Plan: monitor order echo and bnp (2) Acute renal insufficiency: Status: Acute Plan: IVF, monitor renal function (3) Acute hypokalemia: Status: Acute Plan: replete per protocol
--- NOTE | 2024-09-06 10:45 | EKG ---
Test Reason : shortness of breath Blood Pressure : */* mmHG Vent. Rate : 71 BPM Atrial Rate : 71 BPM P-R Int : 98 ms QRS Dur : 74 ms QT Int : 400 ms P-R-T Axes : -3 13 246 degrees QTc Int : 434 ms Sinus rhythm with short MT Abnormal ECG When compared with ECG of 04-SEP-2024 20:27, (Unconfirmed) ST now depressed in Anterior leads Inverted T waves have replaced nonspecific T wave abnormality in Inferior leads Confirmed by Mele Mann MD ([id number]) on 09/07/2024 9:31:08 AM Referred By: Confirmed By: Mele Mann MD
[2024-09-06 12:04] VITALS: BP 128/62; PULSE 69; TEMP 97.8
--- NOTE | 2024-09-06 13:15 | CT ---
EXAM: CHEST W/O CON HISTORY: short of breath; COMPARISON: Chest radiograph 09/04/2024 TECHNIQUE: Multiple CT axial images of the chest were obtained without IV contrast. Coronal and sagittal images were reconstructed. Dose reduction techniques included Automated Exposure Control (AEC) and adjustme nt of mA and kV. FINDINGS: The heart is normal in size. Atherosclerotic calcification is present in the coronary arteries. The pulmonary artery and aorta have a normal caliber. No mediastinal mass or significant lymphadenopath y. The thyroid has a normal size and configuration. No axillary mass or significant axillary lymphadeno andrew is identified. The lungs are well inflated with no pneumonia or pleural effusion. No lung mass. There is a small n odule in the right middle lobe. It measures 4 mm image 39 series 4. Typically, this does not requir e any routine surveillance. If the patient is high risk for cancer, then you might consider an option al follow up chest CT in 12 months. This follow-up is based on recommendations established by the [employer] 2017. Dilated fluid-filled esophagus measures up to 4 cm in diameter. Patient has had gastric ring surgery . No significant bone abnormality. Median sternotomy fixation hardware is present. IMPRESSION: 1. No acute findings 2. Dilated fluid-filled esophagus THIS IS AN ELECTRONICALLY VERIFIED FINAL REPORT 09/06/2024 1:11 PM - Electronically signed by Madhu Mello MD
--- NOTE | 2024-09-07 11:12 | W.DIS.FURT ---
Summary of Discharge Discharge Summary of Date Date of Exam: 09/06/24 Admission Date Date of Admission: 09/04/24 Admission Diagnosis Patient Problems (Updated 09/05/24 @ 09:36 by Clement Pink MD) Chest pain (Acute) R07.9 Acute renal insufficiency (Acute) N28.9 Hospital Course: *Patient repeat EKG shows ST depressions in the anterior leads as well as some T wave inversions compared to prior. Due to continued symptoms of angina will transfer patient to [facility] for cardiac evaluation. Patient was transferred in stable condition. Patient is a 73-year-old female with a past medical history of hypertension, CABG, CAD, hyperlipidemia, admitted for chest pain rule out and acute kidney injury. This morning she is resting comfortably in bed. No acute events overnight. Labs/imaging: WBC 7.8, hemoglobin 12, platelets 217, sodium 142, potassium 4.1, creatinine 2.91, glucose 89, BNP 54. Will order echo, CT chest w/o contrast. Pt complaining of left lower extremity pain. Will get ultrasound to rule out DVT. Troponin negative x 3. Repeat ekg. Home medications resumed. Continue to closely monitor and follow up labs. Time spent for clinical assessment, reviewing labs/imaging, physical exam, decision making and documentation greater than 45 mins. Vital Signs: Vital Signs (72 hours) 09/04/24 17:56 09/04/24 17:57 09/04/24 18:27 Temperature 98.0 F Pulse Rate 81 83 84 Pulse Rate [Left Radial] Respiratory Rate 19 18 21 Blood Pressure 116/61 116/61 Blood Pressure [Left Arm] O2 Sat by Pulse Oximetry 100 100 98 Oxygen Delivery Method Room Air Room Air 09/04/24 18:30 09/04/24 18:45 09/04/24 19:00 Temperature Pulse Rate 82 81 80 Pulse Rate [Left Radial] Respiratory Rate 24 18 15 Blood Pressure Blood Pressure [Left Arm] O2 Sat by Pulse Oximetry 99 100 100 Oxygen Delivery Method 09/04/24 19:15 09/04/24 19:30 09/04/24 19:45 Temperature Pulse Rate 81 80 80 Pulse Rate [Left Radial] Respiratory Rate 13 13 12 Blood Pressure Blood Pressure [Left Arm] O2 Sat by Pulse Oximetry 100 100 Oxygen Delivery Method 09/04/24 20:00 09/04/24 20:15 09/04/24 20:30 Temperature Pulse Rate 78 78 77 Pulse Rate [Left Radial] Respiratory Rate 14 16 10 L Blood Pressure Blood Pressure [Left Arm] O2 Sat by Pulse Oximetry 100 100 100 Oxygen Delivery Method 09/04/24 20:45 09/04/24 21:00 09/04/24 21:15 Temperature Pulse Rate 77 75 79 Pulse Rate [Left Radial] Respiratory Rate 10 L 13 17 Blood Pressure Blood Pressure [Left Arm] O2 Sat by Pulse Oximetry 100 100 100 Oxygen Delivery Method 09/04/24 21:30 09/04/24 21:45 09/04/24 22:00 Temperature Pulse Rate 76 86 79 Pulse Rate [Left Radial] Respiratory Rate 11 L 25 H 27 H Blood Pressure Blood Pressure [Left Arm] O2 Sat by Pulse Oximetry Oxygen Delivery Method 09/04/24 22:15 09/04/24 22:32 09/04/24 22:45 Temperature Pulse Rate 79 81 80 Pulse Rate [Left Radial] Respiratory Rate 25 H 22 26 H Blood Pressure Blood Pressure [Left Arm] O2 Sat by Pulse Oximetry 100 Oxygen Delivery Method 09/04/24 23:00 09/04/24 23:00 09/04/24 23:50 Temperature Pulse Rate 77 Pulse Rate [Left Radial] Respiratory Rate 12 18 Blood Pressure 141/66 Blood Pressure [Left Arm] O2 Sat by Pulse Oximetry 100 Oxygen Delivery Method 09/04/24 23:15 09/04/24 23:30 09/04/24 23:30 Temperature Pulse Rate 80 76 Pulse Rate [Left Radial] Respiratory Rate 21 17 Blood Pressure 164/74 Blood Pressure [Left Arm] O2 Sat by Pulse Oximetry 100 100 Oxygen Delivery Method 09/04/24 23:40 09/05/24 00:05 09/04/24 23:55 Temperature 98.4 F Pulse Rate Pulse Rate [Left Radial] 76 Respiratory Rate 20 Blood Pressure Blood Pressure [Left Arm] 164/73 O2 Sat by Pulse Oximetry 99 Oxygen Delivery Method Room Air Room Air Room Air 09/05/24 04:00 09/05/24 09:30 09/05/24 08:00 Temperature 97.7 F 97.7 F Pulse Rate Pulse Rate [Left Radial] 81 84 Respiratory Rate 19 18 Blood Pressure Blood Pressure [Left Arm] 116/60 135/61 O2 Sat by Pulse Oximetry 100 100 Oxygen Delivery Method Room Air Room Air Room Air 09/05/24 07:00 09/05/24 12:00 09/05/24 14:16 Temperature 98.3 F Pulse Rate Pulse Rate [Left Radial] 90 Respiratory Rate 18 18 Blood Pressure Blood Pressure [Left Arm] 132/58 O2 Sat by Pulse Oximetry 100 Oxygen Delivery Method Room Air Room Air 09/05/24 15:16 09/05/24 16:00 09/05/24 19:00 Temperature 98.5 F Pulse Rate Pulse Rate [Left Radial] 90 Respiratory Rate 20 18 Blood Pressure Blood Pressure [Left Arm] 125/60 O2 Sat by Pulse Oximetry 100 Oxygen Delivery Method Room Air Room Air 09/05/24 20:00 09/05/24 20:35 09/05/24 23:37 Temperature 98.0 F 98.0 F Pulse Rate Pulse Rate [Left Radial] 89 82 Respiratory Rate 16 16 16 Blood Pressure Blood Pressure [Left Arm] 130/66 119/66 O2 Sat by Pulse Oximetry 98 100 Oxygen Delivery Method Room Air Room Air 09/06/24 02:48 09/06/24 03:49 09/05/24 20:07 Temperature 97.5 F L Pulse Rate Pulse Rate [Left Radial] 78 Respiratory Rate 16 16 Blood Pressure Blood Pressure [Left Arm] 126/60 O2 Sat by Pulse Oximetry 99 Oxygen Delivery Method Room Air Room Air 09/06/24 07:00 09/06/24 07:44 09/06/24 07:44 Temperature Pulse Rate 77 Pulse Rate [Left Radial] Respiratory Rate Blood Pressure Blood Pressure [Left Arm] O2 Sat by Pulse Oximetry 95 Oxygen Delivery Method Room Air Room Air 09/06/24 08:22 09/06/24 08:00 09/06/24 12:00 Temperature 97.6 F 97.8 F Pulse Rate Pulse Rate [Left Radial] 75 69 Respiratory Rate 18 17 18 Blood Pressure Blood Pressure [Left Arm] 116/56 128/62 O2 Sat by Pulse Oximetry 100 100 Oxygen Delivery Method Room Air Room Air Labs: Laboratory Last Values WBC 7.8 X10^3/uL (3.6-10.0) 09/06/24 06:18 RBC 4.08 X10^6/uL (3.5-5.4) 09/06/24 06:18 Hgb 12.0 g/dL (12.0-16.0) 09/06/24 06:18 Hct 35.5 % (36.0-47.0) L 09/06/24 06:18 MCV 87.0 fL (80.0-100.0) 09/06/24 06:18 MCH 29.4 pg (27.0-34.0) 09/06/24 06:18 MCHC 33.8 g/dL (33.0-35.0) 09/06/24 06:18 RDW 13.9 % (11.6-16.5) 09/06/24 06:18 Plt Count 217 X10^3/uL (150.0-450.0) 09/06/24 06:18 MPV 9.4 fL (7.4-11.0) 09/06/24 06:18 Neut % (Auto) 51.6 % (42.0-75.0) 09/06/24 06:18 Lymph % (Auto) 37.8 % (21.0-51.0) 09/06/24 06:18 [place] % (Auto) 7.9 % (0.0-13.0) 09/06/24 06:18 Eos % (Auto) 1.5 % (0.9-2.9) 09/06/24 06:18 Baso % (Auto) 1.2 % (0.2-1.0) H 09/06/24 06:18 Neut # (Auto) 4.0 x10^3/uL (2.2-4.8) 09/06/24 06:18 Lymph # (Auto) 2.9 X10^3/uL (1.3-2.9) 09/06/24 06:18 [place] # (Auto) 0.6 x10^3/uL (0.3-0.8) 09/06/24 06:18 Eos # (Auto) 0.1 x10^3/uL (0.0-0.2) 09/06/24 06:18 Baso # (Auto) 0.1 X10^3/uL (0.0-0.1) 09/06/24 06:18 Absolute Nucleated RBC 0.0 /100WBC 09/06/24 06:18 PT 14.9 SECONDS (11.8-14.3) 09/05/24 05:23 INR Target Range - 09/05/24 05:23 INR 1.20 (0.8-1.3) 09/05/24 05:23 APTT 28.0 SECONDS (22.9-36.5) 09/05/24 05:23 PTT Comment - 09/05/24 05:23 Sodium 142 mmol/L (136-145) 09/06/24 05:34 Corrected Sodium TNP 09/06/24 05:34 Potassium 4.1 mmol/L (3.5-5.1) 09/06/24 05:34 Chloride 110 mmol/L (98-107) H 09/06/24 05:34 Carbon Dioxide 24.1 mmol/L (21-32) 09/06/24 05:34 BUN 22 mg/dL (7-18) H 09/06/24 05:34 Creatinine 2.91 mg/dL (0.55-1.02) H 09/06/24 05:34 Est GFR (MDRD) Af Amer 20 (>60) L 09/06/24 05:34 Est GFR (MDRD) Non-Af 17 (>60) L 09/06/24 05:34 Glucose 89 mg/dL (65-99) 09/06/24 05:34 Calcium 8.9 mg/dL (8.5-10.1) 09/06/24 05:34 Corrected Calcium 9.6 mg/dL (8.5-10.1) 09/06/24 05:34 Magnesium 2.3 mg/dL (2.0-2.9) 09/05/24 05:23 Total Bilirubin 0.10 mg/dL (0.2-1.0) L 09/06/24 05:34 AST 16 Units/L (15-37) 09/06/24 05:34 ALT 10 Units/L (12-78) L 09/06/24 05:34 Alkaline Phosphatase 84 Units/L (46-116) 09/06/24 05:34 Creatine Kinase 65 Units/L (26-192) 09/05/24 11:36 Troponin I High Sens 24.1 ng/L (4.0-60.0) 09/05/24 11:36 B-Natriuretic Peptide 65.6 pg/mL (0-79) 09/06/24 06:18 Total Protein 6.4 g/dL (6.4-8.2) 09/06/24 05:34 Albumin 3.1 g/dL (3.4-5.0) L 09/06/24 05:34 Globulin 3.3 g/dL (2.5-4.5) 09/06/24 05:34 Albumin/Globulin Ratio 0.9 Ratio (1.1-2.1) L 09/06/24 05:34 Triglycerides 132 mg/dL (0-150) 09/05/24 05:23 Cholesterol 211 mg/dL (0-200) H 09/05/24 05:23 LDL Cholesterol, Calc 143 mg/dL (0-100) H 09/05/24 05:23 HDL Cholesterol 42 mg/dL (40-60) 09/05/24 05:23 Cholesterol/HDL Ratio 5.0 (0.0-5.0) 09/05/24 05:23 SARS-CoV-2 (PCR) Negative (NEGATIVE) 09/04/24 18:00 Influenza Type A (PCR) Negative (NEGATIVE) 09/04/24 18:00 Influenza Type B (PCR) Negative (NEGATIVE) 09/04/24 18:00 RSV (PCR) Negative (NEGATIVE) 09/04/24 18:00 Reason For Visit: CHEST PAIN, RENAL INSUFFICIENCY Discharge Date Discharge Date: 09/06/24 Discharge Diagnosis All Active Problems (Updated 09/05/24 @ 09:36 by Clement Pink MD) Acute hypokalemia (Acute) COVID-19 (Acute) Chest pain (Acute) Acute renal insufficiency (Acute) Plan of Treatment: Continue with present treatment and follow up plan. Pt is to keep follow up appointment as instructed and take medications as ordered. Discharge Medications Discharge Medications: Sulfa (Sulfonamide Antibiotics) [SULFA] Allergy (Verified 04/12/24 11:45) CONTINUE taking the following medications escitalopram oxalate 10 mg tablet 10 mg PO QDAY 09/04/24 [History] linaclotide 290 mcg capsule (Linzess) 290 mcg PO QAM 09/04/24 [History] nitroglycerin 0.4 mg sublingual tablet (Nitrostat) 0.4 mg sublingual PRN PRN 09/04/24 [History] semaglutide 1 mg/dose (4 mg/3 mL) subcutaneous pen injector (Ozempic) 1 mg subcut QWEEK 09/04/24 [History] Discharge Plan Discharge Plan Hospital Course: *Patient repeat EKG shows ST depressions in the anterior leads as well as some T wave inversions compared to prior. Due to continued symptoms of angina will transfer patient to [facility] for cardiac evaluation. Patient was transferred in stable condition. Patient is a 73-year-old female with a past medical history of hypertension, CABG, CAD, hyperlipidemia, admitted for chest pain rule out and acute kidney injury. This morning she is resting comfortably in bed. No acute events overnight. Labs/imaging: WBC 7.8, hemoglobin 12, platelets 217, sodium 142, potassium 4.1, creatinine 2.91, glucose 89, BNP 54. Will order echo, CT chest w/o contrast. Pt complaining of left lower extremity pain. Will get ultrasound to rule out DVT. Troponin negative x 3. Repeat ekg. Home medications resumed. Continue to closely monitor and follow up labs. Time spent for clinical assessment, reviewing labs/imaging, physical exam, decision making and documentation greater than 45 mins. Patient Disposition: AGAINST MEDICAL ADVICE Condition: Stable Health Concerns: Post Hospitalization: new medications and changes needed to prevent readmission or further decline. Pt educated and given instructions on all concerns. Care Plan Goals: Problem: Chest Pain Goals: Chest pain improving/resolved Instructions: Contact your physician or report to the closest Emergency Department if your chest pain returns or worsens. Take medications as prescr ibed. Follow up with your primary doctor as instructed. Plan of Treatment: Continue with present treatment and follow up plan. Pt is to keep follow up appointment as instructed and take medications as ordered. Prescriptions: No Action nitroglycerin [Nitrostat] 0.4 mg tablet, sublingual 0.4 mg sublingual PRN PRN escitalopram oxalate 10 mg tablet 10 mg PO QDAY Linzess 290 mcg capsule 290 mcg PO QAM Ozempic 1 mg/dose (4 mg/3 mL) pen injector 1 mg SUBCUT QWEEK clopidogrel 75 mg tablet 75 mg PO QDAY amlodipine 5 mg tablet 5 mg PO QDAY tramadol 50 mg tablet 100 mg PO TID pravastatin 80 mg tablet 80 mg PO QDAY estradiol 1 mg tablet 1 mg PO QDAY diclofenac sodium 75 mg tablet,delayed release (DR/EC) 75 mg PO BID testosterone 1 % (25 mg/2.5gram) gel in packet 0.5 packet transdermal QAM metoprolol tartrate 25 mg tablet 25 mg PO BID losartan 50 mg Tablet 50 mg PO QDAY albuterol sulfate 90 mcg/actuation HFA aerosol inhaler 1 puff INHALATION Q4H PRN Instructions Instructions: Acute Kidney Injury, Adult, Hypokalemia, Nonspecific Chest Pain, Adult, [id number]
== END 2024-09-06 13:31 | disposition left against medical advice (07) ==
LOC: ER 17:41 → MED/SURG 23:20 → INTOOBSV 23:20 → MED/SURG 23:51
PROVIDERS: ADMIT Family Medicine; ATTEND Family Medicine
DX: R07.89 Other chest pain; R06.02 Shortness of breath; Z03.818 Encounter for observation for suspected exposure to other biological agents ruled out; I25.10 Atherosclerotic heart disease of native coronary artery without angina pectoris; I10 Essential (primary) hypertension; E87.6 Hypokalemia; N28.89 Other specified disorders of kidney and ureter; R94.31 Abnormal electrocardiogram [ECG] [EKG]; E78.5 Hyperlipidemia, unspecified